=== PATIENT | female | born 1980 | race American Indian/Alaskan Native ===

== ENCOUNTER 2020-11-30 21:32 | Observation (INO) | payer BC ==
--- NOTE | 2020-11-30 23:16 | XRay Report ---
CHEST 2 VIEWS INDICATION / CLINICAL INFORMATION: chest pain. COMPARISON: None available. FINDINGS: SUPPORT DEVICES: None. HEART / MEDIASTINUM: No significant abnormality. LUNGS / PLEURA: No significant pulmonary or pleural abnormality. No pneumothorax. ADDITIONAL FINDINGS: No significant additional findings. IMPRESSION: 1. No acute findings. Signer Name: Efra Jim MD Signed: 11/30/2020 11:12 PM Workstation Name: [id number]
[2020-11-30 23:47] LABS: Alanine Aminotransferase 7 units/L (7-56); Albumin 4.2 g/dL (3.9-5); Blood Urea Nitrogen 13 mg/dL (7-17); Calcium 8.8 mg/dL (8.4-10.2); Hemolysis Index 3
[2020-11-30 23:48] LABS: BUN/Creatinine Ratio 19; Basophils % (Auto) 0.5 % (0.0-1.8); Eosinophils # (Auto) 0.1 K/mm3 (0.0-0.4); Eosinophils % (Auto) 2.1 % (0.0-4.3); Hematocrit 35.4 % (30.3-42.9); Hemoglobin 11.7 gm/dl (10.1-14.3); Lymphocytes # (Auto) 2.1 K/mm3 (1.2-5.4); Lymphocytes % (Auto) 35.6 % (13.4-35.0); Mean Corpuscular HGB Conc 33 % (30-34); Mean Corpuscular Volume 91 fl (79-97); Monocytes # (Auto) 0.5 K/mm3 (0.0-0.8); Monocytes % (Auto) 8.7 % (0.0-7.3); Platelet Count 334 K/mm3 (140-440); Red Blood Count 3.88 M/mm3 (3.65-5.03)
[2020-12-01] MEDS ORDERED: NITROGLYCERIN 2% OINT 1 GM TP ONE (03:20)
[2020-12-01] MEDS ORDERED: ONDANSETRON 4 MG/2 ML INJ IV ONE (03:21)
[2020-12-01] MEDS ORDERED: fentaNYL 100 MCG/2 ML INJ IV ONE (03:21)
[2020-12-01] MEDS ORDERED: ASPIRIN 325 MG TAB PO ONE (03:21)
--- NOTE | 2020-12-01 03:26 | Emergency Department Report ---
HPI - General Chief Complaint: Chest Pain Time Seen by Provider: 12/01/20 03:12 - [facility] HPI: Room 19 The patient is a 40-year-old female present with a chief complaint of chest pain. Patient states she has had substernal chest pain rating to the left upper extremity since yesterday. Patient describes the pain as pressure and associated with slight shortness of breath. Patient denies nausea/vomiting or diaphoresis. Patient states she has had a cough has been nonproductive for the past 2 to 3 days. Patient denies history of fever. Patient denies any recent flights or long car trips lasting over 1 hour. Patient states she has never had a stress test or cardiac catheterization. Patient currently gives her chest pain a score of 1/10 in her left upper extremity pain a score of 6/10 ED Past Medical Hx - Past Medical History Previous Medical History?: No - Surgical History Past Surgical History?: Yes Additional Surgical History: hysterectomy - Family History Family history: no significant - Social History Smoking Status: Never Smoker Substance Use Type: None (Denies illicit drug use), Alcohol (Occasional) ED Review of Systems ROS: Stated complaint: LEFT ARM PAIN/CHEST PAIN/COUGH Other details as noted in HPI Constitutional: denies: diaphoresis, fever Eyes: denies: eye pain ENT: denies: throat pain Respiratory: shortness of breath Cardiovascular: chest pain Endocrine: no symptoms reported Gastrointestinal: denies: nausea, vomiting Genitourinary: denies: dysuria Musculoskeletal: denies: back pain Neurological: denies: headache Physical Exam - Physical Exam Vital Signs: Vital Signs 11/30/20 22:41 Temperature 98.9 F Pulse Rate 85 Respiratory 16 Rate Blood Pressure 117/82 O2 Sat by Pulse 98 Oximetry Physical Exam: GENERAL: The patient is well-developed well-nourished female lying on stretcher not appearing to be in acute distress. [] HEENT: Normocephalic. Atraumatic. Extraocular motions are intact. Patient has moist mucous membranes. NECK: Supple. Trachea midline CHEST/LUNGS: Clear to auscultation. There is no respiratory distress noted. HEART/CARDIOVASCULAR: Regular. There is no tachycardia. There is no gallop rub or murmur. 2+ radial pulses bilaterally ABDOMEN: Abdomen is soft, nontender. Patient has normal bowel sounds. There is no abdominal distention. SKIN: There is no rash. There is no edema. There is no diaphoresis. NEURO: The patient is awake, alert, and oriented. The patient is cooperative. The patient has no focal neurologic deficits. The patient has normal speech MUSCULOSKELETAL: There is no evidence of acute injury. ED Course Vital Signs 11/30/20 22:41 Temperature 98.9 F Pulse Rate 85 Respiratory 16 Rate Blood Pressure 117/82 O2 Sat by Pulse 98 Oximetry ED Medical Decision Making - Lab Data Result diagrams: 11/30/20 22:48 11/30/20 22:48 Laboratory Tests 11/30/20 11/30/20 12/01/20 22:48 22:48 01:49 WBC 5.9 RBC 3.88 Hgb 11.7 Hct 35.4 MCV 91 MCH 30 MCHC 33 RDW 13.0 L Plt Count 334 Lymph % (Auto) 35.6 H [place] % (Auto) 8.7 H Eos % (Auto) 2.1 Baso % (Auto) 0.5 Lymph # (Auto) 2.1 [place] # (Auto) 0.5 Eos # (Auto) 0.1 Baso # (Auto) 0.0 Seg Neutrophils % 53.1 Seg Neutrophils # 3.2 Sodium 141 Potassium 4.4 Chloride 104.3 Carbon Dioxide 30 Anion Gap 11 BUN 13 Creatinine 0.7 Estimated GFR > 60 BUN/Creatinine Ratio 19 Glucose 93 Calcium 8.8 Total Bilirubin 0.20 AST 11 ALT 7 Alkaline Phosphatase 81 Troponin T < 0.010 Total Protein 6.6 Albumin 4.2 Albumin/Globulin Ratio 1.8 - EKG Data -: EKG Interpreted by Me EKG shows normal: sinus rhythm Rate: normal - EKG Data When compared to previous EKG there are: previous EKG unavailable Interpretation: other (No ischemic changes seen) - Radiology Data Radiology results: report reviewed (Chest x-ray), image reviewed (Chest x-ray) interpreted by me: Chest x-ray-no focal infiltrates, no pneumothorax. No foreign body seen [facility] [address] [place] [address] XRay Report Signed Patient: ERNESTINE VARELA MR#: [id number] : 1980 Acct:[id number] Age/Sex: 40 / F ADM Date: 11/30/20 Loc: ED Attending Dr: Ordering Physician: ED DOC, MD Date of Service: 11/30/20 Procedure(s): XR chest routine 2V Accession Number(s): [id number] cc: ED DOC, Fluoro Time In Minutes: CHEST 2 VIEWS INDICATION / CLINICAL INFORMATION: chest pain. COMPARISON: None available. FINDINGS: SUPPORT DEVICES: None. HEART / MEDIASTINUM: No significant abnormality. LUNGS / PLEURA: No significant pulmonary or pleural abnormality. No pneumothorax. ADDITIONAL FINDINGS: No significant additional findings. IMPRESSION: 1. No acute findings. Signer Name: Efra Jim MD Signed: 11/30/2020 11:12 PM Workstation Name: [id number] Transcribed By: SS Dictated By: Efra Jim MD Electronically Authenticated By: Efra Jim MD Signed Date/Time: 11/30/202311 DD/ 09 TD/TT: - Differential Diagnosis ACS, anxiety, GERD, pericarditis Critical care attestation.: If time is entered above; I have spent that time in minutes in the direct care of this critically ill patient, excluding procedure time. ED Disposition Clinical Impression: Chest pain Disposition: 09 OP ADMIT IP TO THIS HOSP Is pt being admited?: Yes Does the pt Need Aspirin: Yes Condition: Fair Instructions: Nonspecific Chest Pain, Adult Referrals: PRIMARY CARE, [Primary Care Provider] - 3-5 Days Time of Disposition: 03:27 (Hospitalist paged (Dr Renee)) Heart Score - HEART Score History: Highly suspicious EKG: Non-specific Age: < 45 Risk factors: No known risk factors Troponin: < normal limit HEART Score: 3 - EKG Read Time Time EKG Completed: 23:21 EKG Read Time: 23:26
[2020-12-01] MEDS ORDERED: MORPHINE 4 MG/1 ML INJ IV PRN (05:48)
[2020-12-01] MEDS ORDERED: NITROGLYCERIN 0.4 MG TAB SUBL SL PRN (05:48)
[2020-12-01] MEDS ORDERED: ACETAMINOPHEN 325 MG TAB PO PRN (05:48)
[2020-12-01] MEDS ORDERED: traMADol 50 MG TAB PO PRN (05:48)
[2020-12-01] MEDS ORDERED: hydrALAZINE 20 MG/1 ML INJ IV PRN (05:49)
--- NOTE | 2020-12-01 05:54 | History and Physical Report ---
History of Present Illness Date of examination: 12/01/20 Date of admission: 12/01/20 03:29 Chief complaint: Chest pain History of present illness: 40 years old female with no significant past medical history was brought to the emergency room because of substernal chest pain which is 6/10 substernal radiating to the left upper extremity as stated shortness of breath since yesterday Patient denies nausea/vomiting or diaphoresis. Patient states she has had a cough has been nonproductive for the past 2 to 3 days. Patient denies history of fever. Patient denies any recent flights or long car trips lasting over 1 hour. Initial cardiac enzyme is negative troponin is 0.01 Past History Past Surgical History: Other (Hysterectomy) Medications and Allergies Allergies Allergy/AdvReac Type Severity Reaction Status Date / Time No Known Allergies Allergy Unverified 11/30/20 22:40 Home Medications Medication Instructions Recorded Confirmed Last Taken Type No Known Home Medications [No 12/01/20 12/01/20 Unknown History Reported Home Medications] Review of Systems Cardiovascular: chest pain Respiratory: cough Exam - Constitutional Vitals: Temp Pulse Resp BP Pulse Ox 98.9 F 58 L 18 120/81 97 11/30/20 22:41 12/01/20 04:30 12/01/20 04:30 12/01/20 04:30 12/01/20 04:30 General appearance: Present: no acute distress, well-nourished - EENT Eyes: Present: PERRL ENT: hearing intact, clear oral mucosa - Neck Neck: Present: supple, normal ROM - Respiratory Respiratory effort: normal Respiratory: bilateral: CTA - Cardiovascular Heart Sounds: Present: S1 & S2. Absent: rub, click - Extremities Extremities: pulses symmetrical, No edema Peripheral Pulses: within normal limits - Abdominal General gastrointestinal: Present: soft, non-tender, non-distended, normal bowel sounds Female genitourinary: Present: normal - Integumentary Integumentary: Present: clear, warm, dry - Musculoskeletal Musculoskeletal: gait normal, strength equal bilaterally - Psychiatric Psychiatric: appropriate mood/affect, intact judgment & insight - Neurologic Neurologic: CNII-XII intact, moves all extremities HEART Score - HEART Score EKG: Non-specific Age: < 45 Risk factors: No known risk factors Troponin: Troponin T < 0.010 ng/mL (0.00-0.029) 12/01/20 01:49 Troponin: < normal limit Results - Labs CBC & Chem 7: 11/30/20 22:48 11/30/20 22:48 Labs: Laboratory Last Values WBC 5.9 K/mm3 (4.5-11.0) 11/30/20 22:48 RBC 3.88 M/mm3 (3.65-5.03) 11/30/20 22:48 Hgb 11.7 gm/dl (10.1-14.3) 11/30/20 22:48 Hct 35.4 % (30.3-42.9) 11/30/20 22:48 MCV 91 fl (79-97) 11/30/20 22:48 MCH 30 pg (28-32) 11/30/20 22:48 MCHC 33 % (30-34) 11/30/20 22:48 RDW 13.0 % (13.2-15.2) L 11/30/20 22:48 Plt Count 334 K/mm3 (140-440) 11/30/20 22:48 Lymph % (Auto) 35.6 % (13.4-35.0) H 11/30/20 22:48 [place] % (Auto) 8.7 % (0.0-7.3) H 11/30/20 22:48 Eos % (Auto) 2.1 % (0.0-4.3) 11/30/20 22:48 Baso % (Auto) 0.5 % (0.0-1.8) 11/30/20 22:48 Lymph # (Auto) 2.1 K/mm3 (1.2-5.4) 11/30/20 22:48 [place] # (Auto) 0.5 K/mm3 (0.0-0.8) 11/30/20 22:48 Eos # (Auto) 0.1 K/mm3 (0.0-0.4) 11/30/20 22:48 Baso # (Auto) 0.0 K/mm3 (0.0-0.1) 11/30/20 22:48 Seg Neutrophils % 53.1 % (40.0-70.0) 11/30/20 22:48 Seg Neutrophils # 3.2 K/mm3 (1.8-7.7) 11/30/20 22:48 Sodium 141 mmol/L (137-145) 11/30/20 22:48 Potassium 4.4 mmol/L (3.6-5.0) 11/30/20 22:48 Chloride 104.3 mmol/L (98-107) 11/30/20 22:48 Carbon Dioxide 30 mmol/L (22-30) 11/30/20 22:48 Anion Gap 11 mmol/L 11/30/20 22:48 BUN 13 mg/dL (7-17) 11/30/20 22:48 Creatinine 0.7 mg/dL (0.6-1.2) 11/30/20 22:48 Estimated GFR > 60 ml/min 11/30/20 22:48 BUN/Creatinine Ratio 19 % 11/30/20 22:48 Glucose 93 mg/dL (65-100) 11/30/20 22:48 Calcium 8.8 mg/dL (8.4-10.2) 11/30/20 22:48 Total Bilirubin 0.20 mg/dL (0.1-1.2) 11/30/20 22:48 AST 11 units/L (5-40) 11/30/20 22:48 ALT 7 units/L (7-56) 11/30/20 22:48 Alkaline Phosphatase 81 units/L (35-129) 11/30/20 22:48 Troponin T < 0.010 ng/mL (0.00-0.029) 12/01/20 01:49 Total Protein 6.6 g/dL (6.3-8.2) 11/30/20 22:48 Albumin 4.2 g/dL (3.9-5) 11/30/20 22:48 Albumin/Globulin Ratio 1.8 % 11/30/20 22:48 - Imaging and Cardiology Chest x-ray: image reviewed Begum/IV: Voiding Method Toilet Assessment and Plan VTE prophylaxis?: Chemical Plan of care discussed with patient/family: Yes - Patient Problems (1) Acute coronary syndrome Current Visit: Yes Status: Acute Plan to address problem: Admit the patient to the medical telemetry. Put the patient on chest pain pathway. Aspirin 81 mg p.o. daily. Lipitor 40 mg p.o. daily. Sublingual nitroglycerin 0.4 mg every 5 minutes as needed. We will do the serial cardiac enzyme. We also do a Lexiscan nuclear stress test. If needed will consult cardiology. Heparin 5000 units subcu every 8 hours (2) Cough Current Visit: Yes Status: Acute Plan to address problem: We will put the patient on Robitussin-DM 10 mL p.o. 3 times daily as needed. (3) DVT prophylaxis Current Visit: Yes Status: Acute Plan to address problem: Heparin 5000 units subcu every 8 hours for DVT prophylaxis. Protonix 40 mg p.o. daily for GI prophylaxis. Patient is a full code
[2020-12-01] MEDS ORDERED: HEPARIN 5,000 UNIT/1 ML VIAL SUB-Q SCH (06:00)
[2020-12-01] MEDS ORDERED: PANTOPRAZOLE 40 MG TAB PO SCH (07:30)
[2020-12-01] MEDS ORDERED: REGADENOSON 0.4 MG/5 ML INJ IV ONE (08:14)
[2020-12-01 10:53] VITALS: BP 111/65
--- NOTE | 2020-12-01 11:26 | Discharge Summary ---
Providers - Providers Date of Admission: 12/01/20 03:29 Date of discharge: 12/01/20 Attending physician: TORREY REYES 12/01/20 Consult to Cardiac Rehabilitation [CONS] Routine Reason For Exam: Phase I Primary care physician: BEEF TAGGER Hospitalization Reason for admission: Chest pain Condition: Fair Pertinent studies: Chest x-ray; no acute abnormality noted Procedures: Stress test; negative for reversible ischemia, normal LV function Hospital course: 40-year-old female patient with no significant past medical history not on any medications was admitted through emergency room with chest pain Patient was initially evaluated in the ED admitted to the hospital symptomatically managed, patient subsequently underwent stress test Which was negative for reversible ischemia, and normal LV function. Patient was symptomatically managed symptoms significantly improved Today patient reports that she has a very stressful time at work due to many responsibilities Patient strongly advised to take some time off, and avoid stressful situations And if no improvement advised to see a psychologist for coping skills. Her chest pain is noncardiac also could be secondary to GERD, recommended a trial of Protonix Foot 10 days, and if no improvement advised to see private branch operations coordinator for further evaluation and management Today patient is comfortable no new complaints vital signs stable, physical examination prior to discharge is unremarkable Stable at discharge Discharge diagnosis; --Atypical chest pain probably noncardiac; Patient's stress test is negative for reversible ischemia, normal LV function Cardiac enzymes and EKG no abnormality Probably secondary to GERD, patient also complains of some anxiety and stress --GERD; probably the cause of chest pain Trial of Protonix for 14 days, GI evaluation outpatient if needed --Acute stress disorder; at workplace Patient advised to take some time off And avoid the situations that cause stress Also advised to see psychologist as needed Patient stress test is negative, symptoms resolved Stable to discharge home Advised to follow with primary care physician, and branch operations coordinator if needed Stable at discharge Disposition: DC-01 TO HOME OR SELFCARE Final Discharge Diagnosis (Prints w/discharge instructions): --Atypical chest pain;. --Possible GERD. --Acute stress disorder Time spent for discharge: 32 min Core Measure Documentation - Palliative Care Palliative Care/ Comfort Measures: Not Applicable - Core Measures Any of the following diagnoses?: none Exam - Constitutional Vitals: Temp Pulse Resp BP Pulse Ox 98.9 F 76 18 111/65 94 11/30/20 22:41 12/01/20 10:31 12/01/20 10:26 12/01/20 09:23 12/01/20 05:44 General appearance: Present: no acute distress, well-nourished - EENT Eyes: Present: PERRL, EOM intact - Neck Neck: Present: supple, normal ROM - Respiratory Respiratory effort: normal Respiratory: bilateral: diminished, negative: rales, rhonchi, wheezing - Cardiovascular Rhythm: regular Heart Sounds: Present: S1 & S2 - Extremities Extremities: no ischemia, No edema - Abdominal General gastrointestinal: Present: soft, non-tender, non-distended - Integumentary Integumentary: Present: clear, warm - Musculoskeletal Musculoskeletal: strength equal bilaterally - Psychiatric Psychiatric: appropriate mood/affect, cooperative - Neurologic Neurologic: CNII-XII intact, moves all extremities Plan Activity: no restrictions Diet: regular Additional Instructions: If you have persistent chest pain, contact MD or go to emergency room as needed. You may need to see private branch operations coordinator for further evaluation as needed. Advised 4 days rest 12/02 - 12/05 and check with primary care physician within 1 week. Follow up with: CARMELINA ABRAHAM MD [Primary Care Provider] - 3-5 Days EDILBERTO TRACEY MD [Staff Physician] - 7 Days Prescriptions: Pantoprazole [Protonix TAB] 40 mg PO QDAC #14 tablet
--- NOTE | 2020-12-01 11:32 | Electrocardiograph Report ---
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
--- NOTE | 2020-12-01 11:33 | Electrocardiograph Report ---
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
--- NOTE | 2020-12-01 11:34 | Electrocardiograph Report ---
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
[2020-12-02] MEDS ORDERED: ASPIRIN EC 325 MG TAB PO SCH (10:00)
== END 2020-12-01 13:50 | disposition home or self-care (01) ==
LOC: ED 21:32 → 4A 12-01 03:29
PROVIDERS: ADMIT Hospitalist; ATTEND Internal Medicine
DX: I24.9 Acute ischemic heart disease, unspecified (principal); R05 Cough; K21.9 Gastro-esophageal reflux disease without esophagitis; F43.0 Acute stress reaction; Z90.710 Acquired absence of both cervix and uterus
CPT/HCPCS: 36415; 71046; 78452; 80053; 84484; 85025; 93005; 93017; 96372; 96374; 96375; 99285; A9502; G0378; J1644; J2405; J3010